=== PATIENT | male | born 1970 | race African-American/Black ===

== ENCOUNTER 2020-04-19 23:29 | Emergency (ER) | payer SELFPAY ==
--- NOTE | 2020-04-19 23:44 | ER Document Report ---
ED Medical Screen (RME) - General Chief Complaint: Foreign Body Stated Complaint: SWALLOWED A FOREIGN OBJECT Time Seen by Provider: 04/19/20 23:38 Mode of Arrival: Ambulatory Information source: Patient Notes: 49-year-old man presented to ED for complaint of possible foreign body swallowed. He states he popped the top on a soda can and then he thought he came away after when he turned the surgery he swallowed the top. He states it feels like it still in his throat. He is alert oriented respirations regular nonlabored speaking in full sentences with no difficulty. He states he smokes one or 2 cigarettes a day drinks a beer or 2 a week and does not use any illicit drugs. He denies any past medical history. We will get a soft tissue neck and chest x-ray. I have greeted and performed a rapid initial assessment of this patient. A comprehensive ED assessment and evaluation of the patient, analysis of test results and completion of medical decision making process will be conducted by an additional ED providers. TRAVEL OUTSIDE OF THE [place] IN LAST 30 DAYS: No - Related Data Allergies/Adverse Reactions: No Known Allergies Allergy (Verified 06/01/14 00:50) Past Medical History - Social History Chew tobacco use (# tins/day): No Frequency of alcohol use: Social Drug Abuse: None Past Surgical History: Reports: Hx Orthopedic Surgery - Immunizations Hx Diphtheria, Pertussis, Tetanus Vaccination: Yes
--- NOTE | 2020-04-19 23:46 | ER Document Report ---
ED Foreign Body - General Stated Complaint: SWALLOWED A FOREIGN OBJECT Time Seen by Provider: 04/19/20 23:38 Primary Care Provider: [facility] [Provider Group] - Follow up as needed Mode of Arrival: Ambulatory Information source: Patient Notes: Patient states that about an hour prior to arrival he was swallowing started and thinks that he may have swallowed the metal top on the can. Patient has foreign body sensation in the throat. Patient states that after he swallowed the top he was able to drink liquids that did go down without difficulty. Patient denies any difficulty breathing at this time. TRAVEL OUTSIDE OF THE [place] IN LAST 30 DAYS: No - HPI Location of foreign body: Throat Onset: Just prior to arrival Onset/Duration: Sudden Quality of pain: Achy Associated symptoms: denies: Fever, Nausea Exacerbated by: Denies Relieved by: Denies Similar symptoms previously: No Recently seen / treated by doctor: No - Related Data Allergies/Adverse Reactions: No Known Allergies Allergy (Verified 06/01/14 00:50) Past Medical History - General Information source: Patient - Social History Smoking Status: Current Every Day Smoker Chew tobacco use (# tins/day): No Frequency of alcohol use: Social Drug Abuse: None Occupation: None Lives with: Family Family History: Reviewed & Not Pertinent - Medical History Medical History: Negative Past Surgical History: Reports: Hx Orthopedic Surgery - Immunizations Hx Diphtheria, Pertussis, Tetanus Vaccination: Yes Review of Systems - Review of Systems Constitutional: No symptoms reported EENT: Throat pain. denies: Difficulty swallowing Cardiovascular: No symptoms reported. denies: Chest pain, Dyspnea Respiratory: No symptoms reported Gastrointestinal: No symptoms reported. denies: Vomiting Genitourinary: No symptoms reported Male Genitourinary: No symptoms reported Musculoskeletal: No symptoms reported Skin: No symptoms reported Hematologic/Lymphatic: No symptoms reported Neurological/Psychological: No symptoms reported Physical Exam - Vital signs Vitals: Temp Pulse Resp BP Pulse Ox 98.1 F 90 17 120/79 100 04/19/20 23:43 04/19/20 23:43 04/19/20 23:43 04/19/20 23:43 04/19/20 23:43 - Notes Notes: PHYSICAL EXAMINATION: GENERAL: Well-appearing and in no acute distress. HEAD: Atraumatic, normocephalic. EYES: sclera anicteric, conjunctiva are normal. ENT: nares patent. Moist mucous membranes. Patient able to manage oral secretions NECK: Normal range of motion, supple without lymphadenopathy LUNGS: CTAB and equal. No wheezes rales or rhonchi. No stridor HEART: Regular rate and rhythm without murmurs EXTREMITIES: Normal range of motion, no pitting edema. NEUROLOGICAL: Cranial nerves grossly intact. Normal speech. Normal gait. PSYCH: Normal mood, normal affect. SKIN: Warm, Dry, normal turgor, no rashes or lesions noted Course - Re-evaluation Re-evalutation: 04/20/20 00:55 Patient concerned about possible foreign body ingestion. Patient thought he had accidentally swallowed the metal tab of a soda can. Patient with globus sensation, no visible foreign body noted on x-rays. Would suspect metal soda tab to present on x-ray imaging. Patient does have incidental sialoliths noted on imaging, patient advised of this finding and encouraged to follow-up with ENT for further management 04/20/20 01:22 EDT - Vital Signs Vital signs: Temp Pulse Resp BP Pulse Ox 98.0 F 87 18 119/77 99 04/20/20 01:17 EDT 04/20/20 01:17 EDT 04/20/20 01:17 EDT 04/20/20 01:17 EDT 04/20/20 01:17 EDT - Diagnostic Test Radiology reviewed: Image reviewed, Reports reviewed Discharge - Discharge Clinical Impression: Globus sensation Condition: Stable Disposition: HOME, SELF-CARE Additional Instructions: Return immediately for any new or worsening symptoms Followup with your primary care provider, call tomorrow to make a followup appointment You do not have any retained metallic foreign body noted in the esophagus or chest area. X-ray images did notice salivary stone calcifications, follow-up with an vp clinical research for further evaluation of this finding. Referrals: [facility] [Provider Group] - Follow up as needed
--- NOTE | 2020-04-20 00:18 | RADIOLOGY REPORT (SQ) ---
EXAM DESCRIPTION: XR CHEST 2 VIEWS COMPLETED DATE/TME: 04/19/2020 23:42 CLINICAL HISTORY: 49 years, Male, Possible swallowed shoulder pop top COMPARISON: None. NUMBER OF VIEWS: 2 TECHNIQUE: Frontal and lateral views of the chest LIMITATIONS: None. FINDINGS: Heart size normal. Lungs are clear. No pneumothorax IMPRESSION: Negative chest copyright 2010 [employer] [facility] [employer]- All Rights Reserved
--- NOTE | 2020-04-20 00:42 | RADIOLOGY REPORT (SQ) ---
EXAM DESCRIPTION: XR NECK SOFT TISSUE COMPLETED DATE/TME: 04/19/2020 23:42 CLINICAL HISTORY: 49 years, Male, Possible swallowed shoulder pop top COMPARISON: June 01, [address] NUMBER OF VIEWS: 2 TECHNIQUE: AP and lateral views of the soft tissues of the neck were obtained. LIMITATIONS: None. FINDINGS: No opaque foreign body is seen. There is no abnormal soft tissue thickening. Right submandibular calcifications correspond to sialoliths on prior CT. There is [id number] multilevel degenerative disc disease from C3-C4 through C6-C7. IMPRESSION: Right submandibular sialoliths. No opaque foreign body is seen. copyright 2010 [employer]- All Rights Reserved
[2020-04-20] MEDS ORDERED: LIDOCAINE 2% VISCOUS SOLN 15 ML UDCUP PO ONE (00:55)
[2020-04-20] MEDS ORDERED: MAG HYDROX/AL HYDROX/SIMETH SUSP 30 ML UDCUP PO ONE (00:55)
[2020-04-20 01:22] VITALS: BP 119/77
== END 2020-04-20 01:28 | disposition home or self-care (01) ==
LOC: ER 23:29
DX: R09.89 Other specified symptoms and signs involving the circulatory and respiratory systems (principal); K11.5 Sialolithiasis; R07.0 Pain in throat; F17.200 Nicotine dependence, unspecified, uncomplicated
CPT/HCPCS: 99284; 71046; 70360; J3490